=== PATIENT | female | born 2005 | race African-American/Black ===

== ENCOUNTER 2024-09-03 21:25 | Emergency (ER) | payer MEDICAID ==
[~2024-09-03] VITALS: Ht 162.6 cm; Wt 86.0 kg
[2024-09-03 21:51] VITALS: BP 107/61; PULSE 113; RESP 18; TEMP 97.8; O2SAT 98
== END 2024-09-04 00:45 | disposition left against medical advice (07) ==
LOC: EDBD 21:25 → ER 21:25
DX: R06.02 Shortness of breath (principal); Z53.21 Procedure and treatment not carried out due to patient leaving prior to being seen by health care provider